=== PATIENT | male | born 1975 | race Caucasian/White ===

== ENCOUNTER 2018-06-12 19:59 | Inpatient (IN) | payer OTHER ==
[~2018-06-12] VITALS: Ht 170.2 cm; Wt 92.5 kg
[2018-06-12 20:09] VITALS: Ht 170.2 cm; Wt 92.5 kg
--- NOTE | 2018-06-12 20:15 | NUR ---
PT PRESENTS TO ED BIB AMBULANCE WITH C/O ALOC. PER EMS CIM PT WAS FOUND BY STAFF ALTERED AROUND 7PM. PER EMS THE PT WAS STABLE AND STAFF WAS ATTEMPTING TO TAKE PT TO CLINIC IN WHEELCHAIR WHEN PT BEGAN TO DETERIORATE SO STAFF CALLED 911. PER EMS WHEN THEY ARRIVED TO [facility] PT HE WAS NON VERBAL BUT VITALS WERE STABLE. EMS STATE WHEN THEY PICKED PT UP HE WAS [facility] OF 12 BUT WHEN THEY ARRIVED TO ED PT WAS AAOX4. PER EMS THEY GAVE PT 2ML LORAZAPAM, AND 5 OF NARCAN IN ROUTE. PER EMS PT PUPILS WERE CONSTRICTED AND PT WAS COMBATIVE WHEN THEY ATTEMPTED TO BRING HIM TO ED. PER STAFF PT STATED HE SNORTED 2 TABS OF "BUSPAR". PT ARRIVED IN ED CALM AND COOPERATIVE, AAOX4, RESP E/U. NO ACUTE DISTRESS NOTED.
[2018-06-12 20:49] LABS: BASOPHIL % 0.4 % (0-2); PLATELET COUNT 193 x10^3mcL (130-400)
--- NOTE | 2018-06-12 21:05 | NUR ---
PT ABLE TO PROVIDE URINE SAMPLE VIA URINAL. PT CALM AND COOPERATIVE, SITTING UP ON GURNEY, RESP E/U, NO ACUTE DISTRESS NOTED.
[2018-06-12 21:11] LABS: CALCIUM 8.9 mg/dL (8.5-10.1); CARBON DIOXIDE 24.6 mmol/L (21-32); CHLORIDE SERUM 107 mmol/L (98-107); CREATININE SERUM 1.4 mg/dL (0.7-1.3); GFR1 59 mL/min; GLUCOSE SERUM 173 mg/dL (74-106); POTASSIUM SERUM 3.6 mmol/L (3.5-5.1); SODIUM SERUM 144 mmol/L (136-145)
[2018-06-12 21:28] LABS: ALBUMIN 3.5 g/dL (3.4-5.0); ALKALINE PHOSPHATASE 62 U/L (46-116); ALT/SGPT 64 U/L (16-63); AMYLASE 38 U/L (25-115); AST/SGOT 30 U/L (15-37); BILIRUBIN TOTAL 0.56 mg/dL (0.20-1.00); CHOLESTEROL 149 mg/dL (<200); LIPASE 80 IU/L (73-393); MAGNESIUM 2.2 mg/dL (1.8-2.4); T4(THYROXINE) 6.3 ug/dL (4.7-13.3); TOTAL PROTEIN, SERUM 6.9 g/dL (6.4-8.2)
[2018-06-12 21:29] LABS: HDL CHOLESTEROL 29 mg/dL (40-60)
[2018-06-12 21:44] LABS: microscopic required? NO
[2018-06-12 22:01] LABS: UA SPECIFIC GRAVITY >=1.030 (1.005-1.035); urine erythrocyte NEGATIVE (NEGATIVE)
[2018-06-12 22:09] LABS: AMPHETAMINE QUAL UR NONE DETECTED (See below)
--- NOTE | 2018-06-12 22:50 | NUR ---
PT GIVEN MED ORDERED, AAOX4, RESP E/U, NO ACUTE DISTRESS NOTED. PT CALM AND COOPERATIVE.
--- NOTE | 2018-06-12 23:35 | NUR ---
PT AAOX4, RESP E/U, SITTING UP ON GURNEY, NO ACUTE DISTRESS NOTED AT THIS TIME.
--- NOTE | 2018-06-12 23:46 | NUR ---
REPORT GIVEN TO [facility] FOR CONTINUITY OF PT CARE.
[2018-06-12] MEDS ORDERED: VALPROIC ACID250 MG PO (23:52)
[2018-06-12] MEDS ORDERED: RISPERIDONE2 M1 PO (23:52)
[2018-06-12] MEDS ORDERED: HYDROXYZINE PA100 MG PO (23:53)
[2018-06-12] MEDS ORDERED: LIPI20 PO (23:53)
[2018-06-12] MEDS ORDERED: MELATONIN3 MG PO (23:54)
--- NOTE | 2018-06-13 00:05 | NUR ---
RECEIVED PT VIA [facility] FROM E/D, ACCOMPANIED BY RN, TRANSPORTER, AND 2 GUARDS. PT A/A/O X 4, FLAT AFFECT, COOPERATIVE TO CARE AT THIS TIME. PT ABLE TO AMBULATE FROM GUERNEY TO BED WITHOUT GAIT OR BALANCE IMPAIRMENT. ON TELE # 21, NSR, HR 84, DENIES CHEST PAIN OR DISCOMFORT AT THIS TIME. NO RESPIRATORY DISTRESS NOTED. IV SITE LAC 18G, CDI. ORIENTED PT TO ROOM, BED CONTROLS, CALL LIGHT SYSTEM. SIDE RAILS UP X 2, BED IN LOW POSITION. WILL ENDORSE TO GT STEIN.
[2018-06-13 00:14] VITALS: BP 159/95
--- NOTE | 2018-06-13 00:30 | NUR ---
APPEARS SLEEPING AT THIS TIME BREATHING EASY AND NONLABOR. NO SIGN OF DISTRESS NOTED. CIM OFFICERS AT BEDSIDE. WILL CONTINUE TO MONITOR.
--- NOTE | 2018-06-13 05:14 | NUR ---
CHECKED AT INTERVALS FOR NEEDS AND COMFORT. NO SIGNIFICANT CHANGED NOTED THE ENTIRE SHIFT.
[2018-06-13 05:55] VITALS: BP 120/74
[2018-06-13 07:25] LABS: BASOPHIL % 0.3 % (0-2); PLATELET COUNT 223 x10^3mcL (130-400); RED CELL DISTRIBUTION WIDTH 13.4 % (11.5-14.5)
--- NOTE | 2018-06-13 07:30 | NUR ---
PATIENT RESTING IN BED, PT IS A/O X4 (PERSON, PLACE , TIME). TELE MOITOR IN PLACE, NSR. DENIES CHEST PAIN. NO SOB NOTED, PT ON ROOM AIR. IV TO LAC SALINE LOCK, NO REDNESS, SWELLING OR PAIN AT SITE. WILL CONTINUE TO MONITOR FOR CHANGES. CIM GUARDS X2 AT BEDSIDE FOR SAFETY. CALL LIGHT WITHIN REACH. BED IN LOW POSITION, SIDE RAILS X2 FOR SAFETY PRECAUTION.
[2018-06-13 07:42] LABS: ALBUMIN 3.4 g/dL (3.4-5.0); ALKALINE PHOSPHATASE 57 U/L (46-116); ALT/SGPT 72 U/L (16-63); AST/SGOT 110 U/L (15-37); BILIRUBIN TOTAL 0.69 mg/dL (0.20-1.00); CALCIUM 8.8 mg/dL (8.5-10.1); CARBON DIOXIDE 23.7 mmol/L (21-32); CHLORIDE SERUM 109 mmol/L (98-107); GFR1 > 60 mL/min; GLUCOSE SERUM 95 mg/dL (74-106); SODIUM SERUM 144 mmol/L (136-145); TOTAL PROTEIN, SERUM 6.8 g/dL (6.4-8.2)
[2018-06-13 09:42] VITALS: BP 132/82
[2018-06-13 11:30] VITALS: BP 132/82
--- NOTE | 2018-06-13 12:25 | NUR ---
PATIENT DISCHARGED TO [facility]. PT RECEIVED D/C INSTRUCTIONS, NO PRESCRIPTIONS INCLUDED. PATIENT UNDERSTANDS D/C PLAN AND INSTRUCTION, INCLUDING FOLLOW UP CARE. ALL PERSONAL BELONGING WERE TAKEN WITH [facility] GAISABEL. [facility] GAURDS RECEIVED PATIENT D/C INSTRUCTIONS. IV TO LAC REMOVED REMOVED, CATH INTACT. NO REDNESS,SWELLING OR PAIN AT SITE. ARMBANDS AND TELE REMOVED, [employer] B[employer] TE[employer]ER AWARE PATIENT LEFT. PATIENT WAS TAKEN DOWN VIA WHEEL CHAIR WITH 2 [facility] GUARDS AT SIDE, AND VICE PRESIDENT, FOR SAFETY PRECAUTION.
== END 2018-06-13 12:25 | disposition other institution (70) | DRG 917 ==
LOC: ED 19:59 → DU 22:09 → EDBD 22:09 → DU 06-13 00:07
PROVIDERS: Emergency Medicine; ADMIT Internal Medicine
DX: T43.591A Poisoning by other antipsychotics and neuroleptics, accidental (unintentional), initial encounter (principal); G93.41 Metabolic encephalopathy; E78.5 Hyperlipidemia, unspecified; F31.9 Bipolar disorder, unspecified; B18.2 Chronic viral hepatitis C; E78.00 Pure hypercholesterolemia, unspecified; Y92.148 Other place in prison as the place of occurrence of the external cause; Z68.31 Body mass index [BMI] 31.0-31.9, adult; Z90.49 Acquired absence of other specified parts of digestive tract
CPT/HCPCS: 82962; G0480; J3411; J3475; J3490; Q0092